=== PATIENT | female | born 1940 | race Caucasian/White ===

== ENCOUNTER 2020-04-30 23:20 | Emergency (ER) | payer MEDICARE ==
[~2020-04-30] VITALS: Ht 152.4 cm; Wt 56.7 kg
--- NOTE | 2020-04-30 23:20 | NUR ---
BIB EMS FROM HOME C/O "1 TEASPOON MARIJUANA OF TINCTURE INGESTION". PT AAOX4, NAD; PT TO BED 10, PLACED ON MONITOR, -SOB NAD NOTED, VSS, PENDING ER PROVIDER SIS
[2020-04-30] MEDS ORDERED: LORAZEPAM INJ 2 MG/ML VIAL ONE (23:41)
--- NOTE | 2020-04-30 23:47 | NUR ---
per dr. salcido; given ativan 1mg im.
--- NOTE | 2020-04-30 23:48 | NUR ---
ATIVAN 1MG GIVEN IM PTIMARY NURSE, WITNESSED ATIVAN 1MG WASTED BY ANTONETTE MELCHOR. ORIGINAL ORDER WAS FOR ATIVAN 0.5MG, ORDERED ADDITINAL ATIVAN 0.5MG TOTALLING TO ATIVAN 1MG.
[2020-05-01] MEDS ORDERED: LORAZEPAM INJ 2 MG/ML VIAL IM ONE ×2
--- NOTE | 2020-05-01 00:26 | NUR ---
: SHER [phone]
--- NOTE | 2020-05-01 05:21 | NUR ---
called brandy, left message.
--- NOTE | 2020-05-01 06:24 | NUR ---
SPOKE WITH SHER - . WILL SUPERVISOR PLATE PASTING PATIENT.
[2020-05-01 07:14] VITALS: BP 130/75
== END 2020-05-01 07:14 | disposition home or self-care (01) ==
LOC: ER 23:31
DX: F12.10 Cannabis abuse, uncomplicated (principal); F41.9 Anxiety disorder, unspecified; K21.9 Gastro-esophageal reflux disease without esophagitis; G47.00 Insomnia, unspecified
CPT/HCPCS: 96372 ×2; 99285; J2060